=== PATIENT | female | born 1990 | race Caucasian/White ===

== ENCOUNTER → 2019-10-09 12:56 | Outpatient (BNVA) | payer MEDICAID, SELFPAY | PROVIDERS: Family Provider Nurse Practitioner Family; PCP Nurse Practitioner Family; Visit Provider Nurse Practitioner | DX: F33.0 Major depressive disorder, recurrent, mild (principal); F41.1 Generalized anxiety disorder; F40.10 Social phobia, unspecified | CPT/HCPCS: 99214 ==

== ENCOUNTER 2019-12-02 15:12 | Outpatient (CLI) | payer MEDICAID, SELFPAY ==
--- NOTE | 2019-12-02 15:15 | MR_ITS ---
WS: [id number] MRI LUMBAR SPINE NONCONTRAST HISTORY: Low back pain COMPARISON: 07/15/2018 TECHNIQUE: Sagittal and axial multisequence imaging is submitted. Normal lumbar alignment. Mild disc space narrowing and desiccation at L5-S1. No fracture or marrow ed julienne. Disc spaces and vertebral body heights are well-preserved. Conus terminates normally at L1-2 disc level. L1-L2: Normal. L2-L3: Normal. L3-L4: Small amount of fluid in the facet joints. No stenosis. L4-L5: Shallow central disc protrusion without stenosis or nerve root contact. Small amount of fluid in the facet joints. Similar to the prior study. L5-S1: Large central and RIGHT paracentral/subarticular disc protrusion. Disc is extruded inferior to the disc space into the subarticular recess. Disc extends caudad over a length of 1.5 cm and transve rsely x 1.2 and anterior posterior x 0.8 cm. Disc has increased in size. There is more contact on the central thecal sac and the RIGHT S1 nerve root. Mild narrowing of the RIGHT foramen. Small complex follicle or corpus luteum in the RIGHT ovary. Previously seen large LEFT ovarian cyst i s no longer identified. MR/MR lumbar spine wo con* [id number] IMPRESSION: 1. Increase in size of the large central and RIGHT subarticular extruded disc at L5-S1 with more contact on the RIGHT S1 nerve root and subarticular recess s tenosis. 2. No central stenosis. 3. Unchanged small central disc protrusion at L4-5.
== END 2019-12-02 15:13 | disposition home or self-care (01) ==
LOC: RADSHAW 15:14
PROVIDERS: Family Provider Nurse Practitioner Family; PCP Nurse Practitioner Family; Visit Provider Licensed Practical Nurse
DX: M51.17 Intervertebral disc disorders with radiculopathy, lumbosacral region (principal); M51.26 Other intervertebral disc displacement, lumbar region
CPT/HCPCS: 72148

== ENCOUNTER → 2019-12-04 07:53 | Outpatient (BNVA) | payer MEDICAID, SELFPAY | PROVIDERS: Family Provider Nurse Practitioner Family; PCP Nurse Practitioner Family; Visit Provider Nurse Practitioner | DX: F41.1 Generalized anxiety disorder (principal); F33.0 Major depressive disorder, recurrent, mild | CPT/HCPCS: 99214 ==

== ENCOUNTER → 2020-01-07 11:26 | Outpatient (BNVA) | payer MEDICAID, SELFPAY | PROVIDERS: Family Provider Nurse Practitioner Family; PCP Nurse Practitioner Family; Visit Provider Nurse Practitioner Family | DX: Z01.818 Encounter for other preprocedural examination (principal); R53.83 Other fatigue; Z79.899 Other long term (current) drug therapy | CPT/HCPCS: 80053; 81001; 83036; 84443; 85025 ==

== ENCOUNTER 2020-01-11 11:28 | Observation (INO) | payer MEDICAID, SELFPAY ==
[2020-01-08 11:32] VITALS: BMI 50.0
[2020-01-11] VITALS (22 sets, daily range): BP systolic 107–155; BP diastolic 67–101; PULSE 80–107; RESP 17–20; TEMP 36.5–36.8; O2SAT 92–99
[2020-01-11 06:08] LABS: OR HCG Qualitative Urine Negative (Negative)
[2020-01-11] MEDS: gabapentin 300 mg Capsule PO (06:23)
[2020-01-11] MEDS: sodium chloride 0.9% 1,000 ML 30 ML IV (06:23)
--- NOTE | 2020-01-11 06:27 | ANES.PREANE2 ---
Pre-Anesthetic Assessment Pre-Anesthetic Assessment: Height/Weight: Height 1.68 m Weight 140.614 kg Temp Pulse Resp BP Pulse Ox 98.0 F 86 18 149/86 97 01/11/20 06:15 01/11/20 06:15 01/11/20 06:15 01/11/20 06:15 01/11/20 06:15 Preop Diagnosis: Intervertebral disc disorder with radiculopathy, lumbosacral Proposed Procedure: Operation Date: 01/11/20 07:00 Proposed Procedures p Right L5-S1 Hemilaminotomy Foraminotomy Discectomy 1 76519/m51.17(Right) - Bryce Urbina MD Familial anesthetic complications: None Was Beta Mandeep taken within 24 hours: N/A Last intake: Intake 0420 sips with meds (water) Last Liquid Date 01/10/20 Last Liquid Time 17:30 Last Solid Date 01/10/20 Last Solid Time 17:30 Social: Social History: Tobacco and No alcohol Packs per day: 0.5 ppd Exam: Pre-Anes Outpt Exam: alert, oriented x 3, clear to auscultation bilaterally and regular rate & rhythm Airway: Cervical ROM: WNL MP: 4 Dentition: Full Additional comments: Patient's tongue discolored, denies drinking any coffee this morning Pulmonary: Pulmonary: Sleep apnea (noncompliant with cpap) CV/HEM: CV/HEM: None reported : : None reported Hepatic: Hepatic: None reported GI: GI: GERD Metabolic: Metabolic: Morbid obesity Musc/skel: Musc/skel: Lower Back Pain Neuropsych: Neuropsych: Anxiety and Depression Anesthetic Plan: ASA status: 2 Anesthesia: General Risk of > 500 ml blood loss (7ml/kg in children): No Meds/Allergies Current Medications: Current Medications Generic Name Dose Route Start Last Admin Trade Name Freq PRN Reason Stop Dose Admin Vancomycin HCl 1,5 00 mg/ 250 mls @ 166.667 mls/hr 01/11/20 05:50 01/11/20 06:24 Sodium Chloride IV 01/11/20 07:19 166.7 mls/hr ONCE ONE Administration Protocol Sodium Chloride 1,000 mls @ 30 ml s/hr 01/11/20 06:00 01/11/20 06:23 Sodium Chloride 0.9% IV 01/12/20 05:59 30 mls/hr .Q24H JESSICA Administration PFSH Anesthesia PFSH: Social History Smoking and tobacco status: current every day smoker cigarettes Alcohol intake: current Alcohol intake frequency: holidays/special occasions only Household members: significant other Marital status: Single Current occupational status: unemployed History of recent travel: No Female Reproductive History: Para: 3 Data Anesthesia Other Labs: Laboratory Results - last 48 hr 01/11/20 06:07 Urine HCG, Qual Negative Cardiac Studies: No Data to Display
--- NOTE | 2020-01-11 06:54 | W.PM.OPSUD ---
Surgery/Procedure H&P Update DATE OF PROCEDURE: January 11, 2020 DATE H&P PERFORMED: 01/07/20 H&P UPDATE INFORMATION: I have reviewed H&P completed within last 30 days and H&P is in [facility] EMR on date indicated PREOP DIAGNOSIS: Intervertebral disc disorder with radiculopathy, lumbosacral PRIMARY INDICATION FOR PROCEDURE: Pain PLANNED PROCEDURE: Operation Date: 01/11/20 07:00 Proposed Procedures Right L5-S1 Hemilaminotomy/Foraminotomy/Discectomy 12845/m51.17(Right) - Bryce Urbina MD
--- NOTE | 2020-01-11 07:10 | PM.OP2 ---
 Brief Operative Note: Date of procedure: 01/11/20 Pre-op diagnosis: Lumbosacral disc displacement with radiculopathy Post-op diagnosis: same Procedure Done: Right L5-S1 hemilaminotomy/discectomy/foraminotomy. Surgeon: Bryce Urbina Estimated blood loss (mL): 50 Complications: None Post-op Plan: PACU, then asencio. Condition: stable Disposition: PACU Coding Level of Care Code Acute Apprentice Embalmer for Maru Ovalle
--- NOTE | 2020-01-11 07:20 | XR_ITS ---
WS: [id number] XR lumbar spine 1V port [id number] REASON FOR EXAM: OR PICS FINDINGS: A localizer is seen at the region of the L5-S1 area along the posterior surface. XR/XR lumbar spine 1V port [id number] IMPRESSION: Preop localization L5-S1
[2020-01-11] MEDS: thrombin 5,000 unit SDV 5000 UNIT XX (07:47)
--- NOTE | 2020-01-11 07:58 | XR_ITS ---
WS: [id number] XR lumbar spine 1V port [id number] REASON FOR EXAM: SURGERY FINDINGS: Interoperative changes are noted in the lateral projections consistent with localization at the L5-S1 area. XR/XR lumbar spine 1V port [id number] IMPRESSION: Postop marker and postop changes L5-S1.
--- NOTE | 2020-01-11 08:29 | SUR.OPER ---
Family Notified Of Patient's Status Via Phone.
--- NOTE | 2020-01-11 09:33 | SUR.OPER ---
Family Notified Of Patient's Status Via Phone.
[2020-01-11] MEDS: fentaNYL 50 mcg/mL INJ 2mL IVP ×2 (11:31→11:36)
--- NOTE | 2020-01-11 12:00 | P.OP_ITS ---
Operative Report Date of procedure: January 11, 2020 Pre-op Diagnosis: Intervertebral disc disorder with radiculopathy, lumbosacral Pre-op Diagnosis: Morbid obesity Post-op diagnosis: same Procedure Done: Right L5-S1 hemilaminotomy/discectomy/foraminotomy. Specimens removed/disposition: L5-S1 disc Pathology: Disc fragments Surgeon: Bryce Urbina Anesthesia: General Estimated blood loss (mL): 50 IV fluids (mL): 1,500 Urine output (mL): 50 Complications: None Condition: stable Disposition: PACU Brief History: The patient is a 29-year-old morbidly obese female with symptomatic, radiographically confirmed right L5-S1 disc herniation, with associated neural impingement. Symptoms primarily involved the right lower extremity. Conservative treatment measures, including pain clinic interventions, failed to provide adequate lasting relief. After review of the diagnostic and treatment options with the risks/potential benefits/rationale for each, the patient requested to proceed with surgical intervention to address the intractable pain and associated activity limitations. Procedure: After routine preoperative evaluation and informed consent were obtained, the patient was taken to the Operating Room and placed under general endotracheal anesthesia. She was rotated onto the Operating Room table in the modified knee- chest position with the aid of the Johnston spine frame. The lumbosacral area was prepared with hair clippers. A proposed midline skin incision was marked with a sterile skin marker. Intraoperative radiography was used for localization purposes. The lumbosacral area was scrubbed with Betadine and prepped with DuraPrep. Sterile towels and drapes were applied, and an Ioban surgical barrier was placed. The proposed incision site was infiltrated with 1% Xylocaine with Epinephrine. A skin incision was made and carried down into the subcutaneous tissues. The lumbodorsal fascia was identified and divided in the midline. A right-sided subperiosteal dissection was carried down along the lamina of L5 and S1. Deep self-retaining retractors were placed. Intraoperative radiography was utilized to verify the surgical level. A limited laminotomy was fashioned at L5- S1 with Leksell and Kerrison rongeurs. Ligamentum flavum was resected at the base of the laminotomy site. The ligament was undercut across the midline and into the lateral recess. Limited resection of the medial aspect of the facet joint was performed to further the decompression. The thecal sac was retracted with the nerve root retractor. Some epidural adhesions were noted between herniated disc material and the dura. Retraction of the neural elements allowed disc herniation and associated marginal osteophytes to be addressed with various curettes and pituitary rongeurs. Disc material was also removed from within the spinal canal in a subligamentous location and from within the disc space near the annular defect. At the completion of the discectomy, there was no evidence of residual neural impingement within the central canal, lateral recess or neuroforamina at the operative site. The incision was copiously irrigated with sterile saline and antibiotic irrigation. Hemostasis was ensured with the bipolar electrocautery. A thin layer of Surgi-Dilip hemostatic matrix was placed over the exposed dura prior to wound closure. Closure consisted of 2-0 Vicryl Plus simple interrupted sutures in the lumbodorsal fascia, superficial fascia, and deep dermis as separate layers. Final skin closure was performed with 3-0 Vicryl Plus in a running subcuticular pattern. Steri-Strips were applied, and a sterile dressing was placed. The patient was then rotated onto the Recovery Room cart in the supine position. She was extubated without incident. The patient tolerated the procedure well. All sponge, needle, and instrument counts were correct at the completion of the procedure.
[2020-01-11] MEDS: lactated ringers 1,000 ML 90 ML IV (12:36)
[2020-01-11] MEDS: duloxetine 60 mg Capsule PO (12:39)
[2020-01-11] MEDS: HYDROcodone-acetaminophen 5-325 mg Tablet PO (15:20)
[2020-01-11] MEDS: docusate sodium 100 mg Capsule PO (17:20)
--- NOTE | 2020-01-11 18:00 | PM.DCS ---
Discharge Providers Date of Admission: 01/11/20 11:28 Date of Discharge: January 11, 2020 Attending Provider at Admission: Bryce Urbina MD Attending Provider at Discharge: Bryce Urbina MD Primary Care Provider: BREANNA Wynn Diagnoses at Discharge Discharge Diagnosis (1) Intervertebral disc disorder with radiculopathy of lumbosacral region: Status: Chronic (2) Morbid obesity: Status: Acute Reason for Visit Reason for Visit: Reason For Visit: Intervertebral disc disorder with radiculopathy of Brief History: The patient is a 29-year-old morbidly obese female with symptomatic, radiographically confirmed right L5-S1 disc herniation, with associated neural impingement. Symptoms primarily involved the right lower extremity. Conservative treatment measures, including pain clinic interventions, failed to provide adequate lasting relief. After review of the diagnostic and treatment options with the risks/potential benefits/rationale for each, the patient requested to proceed with surgical intervention to address the intractable pain and associated activity limitations. Hospital Course Hospital Course: The patient underwent right L5-S1 hemilaminotomy/discectomy/foraminotomy on 01/11/2020. She tolerated the procedure well, and reported improvement/relief of preoperative right lower extremity symptoms following surgery. She completed preoperative and postoperative intravenous antibiotics, and the physical therapy postoperative spine protocol. She was ambulatory, voiding, and tolerating regular diet prior to discharge home on the evening of the date of surgery. Physical Exam Const: COMMON NORMALS: no apparent distress GENERAL APPEARANCE: cooperative and comfortable NUTRITIONAL APPEARANCE: obese morbidly obese Neck/C-Spine: COMMON NORMALS: supple Resp: COMMON NORMALS: normal respiratory effort EFFORT & INSPECTION: Yes able to speak in complete sentences and No tachypneic Neuro: COMMON NORMALS: moves all extremities MOTOR EXAM: strength 5/5 throughout (Bilateral lower extremities) Psych: COMMON NORMALS: mental status grossly normal and speech normal ATTITUDE: Yes calm and Yes engaged ACTIVITY/MOTOR BEHAVIOR: Yes appropriate eye contact SPEECH: Yes normal speech INSIGHT: insight good JUDGEMENT: judgment good Skin: WOUNDS: Yes surgical site (Midline lumbar surgical incision without erythema or drainage. Surgical site dressing clean/dry/intact.) Urinary Catheter Management^: F: Cath Placed During This Visit: yes, but has since been removed by the nurse Urinary Catheter Date of Insertion: 01/11/20 Urinary Catheter Time of Insertion: 07:20 Date Urinary Catheter Removed: 01/11/20 Time Urinary Catheter Discontinued: 10:57 Discharge Data Data Completed and Pending: Completed Studies During Hospitalization Category Date Time Status XR lumbar spine 1 view portable [XR lumbar spine 1V Exams 01/11/20 07:58 Completed port [id number]] Routi ne XR lumbar spine 1 V port [id number] Routi ne Exams 01/11/20 07:20 Completed Pathology: Surgic al [PTH] Routine Pth 01/11/20 10:57 Completed Procedures Performed: Right L5-S1 hemilaminotomy/discectomy/foraminotomy. Intravenous antibiotics. Physical therapy. Vitals: Last Vital Signs Temp 98.0 F 01/11/20 17:27 Pulse 107 H 01/11/20 19:28 Resp 18 01/11/20 19:28 BP 138/90 01/11/20 17:27 Pulse Ox 95 01/11/20 19:28 Discharge Plan Discharge Patient Disposition: Home, Self-Care Condition: Stable Prescriptions: [place] 7.5-325 mg tablet 1 tab PO Q4H PRN (Reason: pain) Qty: 25 RF: 0 Continued diclofenac potassium 50 mg tablet 50 mg PO BID RF: 0 melatonin 1 mg tablet 5 mg PO .QHS RF: 0 tizanidine 2 mg capsule 4 mg PO TID PRN (Reason: Anxiety) RF: 0 trazodone 100 mg tablet 100 mg PO .QHS Qty: 30 RF: 1 duloxetine [Cymbalta] 30 mg capsule,delayed release(DR/EC) 30 mg PO DAILY Qty: 30 RF: 1 duloxetine [Cymbalta] 60 mg capsule,delayed release(DR/EC) 60 mg PO QDAY Qty: 30 RF: 1 omeprazole 40 mg capsule,delayed release(DR/EC) 40 mg PO DAILY 30 Days Qty: 30 RF: 1 Discontinued hydrocodone-acetaminophen 5-325 mg tablet 1 tab PO QID PRN (Reason: Pain) RF: 0 Discharge Orders: Discharge Order (Routine); Ordered 01/11/20 Ordered By: Bryce Urbina Referrals: Bryce Urbina MD [Physician] - 2 weeks Discharge Diet: Regular Discharge Activity: Limit activity as instructed and As per PT/OT instructions Patient Instructions: Foraminotomy (DC) Activity Restrictions/Additional Instructions: Activity - No driving until office followup visit - No lifting/pushing/pulling over 10 pounds - Avoid twisting or bending - Walking is encouraged - Home exercise per physical therapist - You may engage in sexual intercourse at any time as long as it is comfortable for you - Check with your doctor before returning to work. Notify your doctor if you develop: - temperature of 101.5 degrees F. or higher - redness or swelling of the incision - Foul drainage - increasing pain - increasing numbness or tingling in the arms or legs - New or increasing problems with vision, balance, memory, speaking, nausea or vomiting Hygiene: - Showering is okay - No tub baths or soaking Other: Remove outer bandage 3 days after surgery. If you have paper strips, leave in place until they fall off on their own. If you have stitches, keep your incision dry until the stitches are removed. Your doctor's office is available to answer any questions from 7 AM to 5:00 PM, Saturday through at [phone]. After hours, go to the emergency room at [facility] or call 911 for assistance. 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
--- NOTE | 2020-01-14 16:00 | PC.RESP ---
Smoking Cessation sent to patient after discharge with a schedule of classes.
== END 2020-01-11 20:19 | disposition home or self-care (01) ==
LOC: MEDSURG 11:28
PROVIDERS: Admitting Provider Specialist; Family Provider Nurse Practitioner Family; PCP Nurse Practitioner Family; Visit Provider Specialist
PROC: (CPT 22899; principal; 2020-01-11 07:00)
DX: M51.17 Intervertebral disc disorders with radiculopathy, lumbosacral region (principal); E66.01 Morbid (severe) obesity due to excess calories; Z68.43 Body mass index [BMI] 50.0-59.9, adult; F17.210 Nicotine dependence, cigarettes, uncomplicated; G47.30 Sleep apnea, unspecified; K21.9 Gastro-esophageal reflux disease without esophagitis; Z82.49 Family history of ischemic heart disease and other diseases of the circulatory system; Z83.3 Family history of diabetes mellitus
CPT/HCPCS: 63030; 63035; 12345; 51702; 72020; 81025; 84703; 88304; 96361; 96365; 96366; 97161; 97530; G0378; J0690; J1100; J2001; J2405; J2704; J3010; J3370; J3490; J7030; J7050

== ENCOUNTER → 2020-02-10 07:53 | Outpatient (BNVA) | payer MEDICAID, SELFPAY | PROVIDERS: Family Provider Nurse Practitioner Family; PCP Nurse Practitioner Family; Visit Provider Nurse Practitioner | DX: F41.1 Generalized anxiety disorder (principal); F33.0 Major depressive disorder, recurrent, mild | CPT/HCPCS: 99204; 99214 ==

== ENCOUNTER → 2020-02-25 07:42 | Outpatient (BNVA) | payer MEDICAID, SELFPAY | PROVIDERS: Family Provider Nurse Practitioner Family; PCP Nurse Practitioner Family; Visit Provider Nurse Practitioner | DX: F33.0 Major depressive disorder, recurrent, mild (principal); F41.1 Generalized anxiety disorder | CPT/HCPCS: 99213 ==

== ENCOUNTER 2020-08-22 08:36 | Outpatient (CLI) | payer MEDICAID, SELFPAY ==
--- NOTE | 2020-08-22 09:30 | MR_ITS ---
WS: [id number] MRI HEAD WITHOUT CONTRAST TECHNIQUE: Sagittal T1, T2 axial, T2 axial FLAIR, axial and coronal T1 images, axial susceptibility w eighted imaging, axial diffusion weighted images, and coronal T2 images were obtained. CLINICAL INFORMATION: H53.9 - Unspecified visual disturbance COMPARISON: None. FINDINGS: No evidence of restricted diffusion to suggest acute ischemia. Ventricular system and basal cisterns are patent. Normal flood-white differentiation. No suspicious intracranial signal abnormalities. Kathie l posterior fossa. Normal vascular flow voids at the skull base. No extra-axial fluid collections. Mi ld mucosal thickening in the paranasal sinuses. Polypoid mucosal thickening in the right maxillary si nus and sphenoid sinus. Incidental partially empty sella. No hemosiderin on susceptibly weighted images. Temporal lobes and hippocampal formations are normal in appearance. No evidence of mesial temporal sclerosis. Incidental left middle cranial fossa arachnoid cyst measuring 2.1 x 1.7 x 1.2 cm MR/MR head wo con* [id number] IMPRESSION: 1. No evidence of restricted diffusion to suggest acute ischemia. 2. No suspicious intracranial signal abnormalities. Normal flood-white differen tiation. 3. Incidental arachnoid cyst left middle cranial fossa measuring 2.1 x 1.7 x 1 .2 CM. 4. Polypoid mucosal thickening right maxillary sinus and sphenoid sinus. 5. No hemosiderin on susceptibly weighted images. 6. No hydrocephalus.
== END 2020-08-22 08:37 | disposition home or self-care (01) ==
LOC: RADSHAW 08:38
PROVIDERS: Family Provider Nurse Practitioner Family; PCP Nurse Practitioner Family; Visit Provider Nurse Practitioner Family
DX: G93.0 Cerebral cysts (principal); H53.9 Unspecified visual disturbance; R51.9 Headache, unspecified
CPT/HCPCS: 70551

== ENCOUNTER → 2020-08-24 12:14 | Outpatient (BNVA) | payer MEDICAID, SELFPAY | PROVIDERS: Family Provider Nurse Practitioner Family; PCP Nurse Practitioner Family; Visit Provider Nurse Practitioner Family | DX: J32.9 Chronic sinusitis, unspecified (principal); R53.83 Other fatigue; Z13.6 Encounter for screening for cardiovascular disorders; E55.9 Vitamin D deficiency, unspecified; Z79.899 Other long term (current) drug therapy | CPT/HCPCS: 80053; 80061; 81003; 82306; 83036; 84443; 85025 ==

== ENCOUNTER → 2020-09-19 11:07 | Outpatient (BNVA) | payer BC, MEDICAID, SELFPAY | PROVIDERS: Family Provider Nurse Practitioner Family; PCP Nurse Practitioner Family; Visit Provider Psychiatry & Neurology Psychiatry | DX: F33.0 Major depressive disorder, recurrent, mild (principal); Z72.820 Sleep deprivation; F41.1 Generalized anxiety disorder | CPT/HCPCS: 99214 ==

== ENCOUNTER → 2020-10-18 10:07 | Outpatient (BNVA) | payer BC, SELFPAY | PROVIDERS: PCP Nurse Practitioner Family; Visit Provider Psychiatry & Neurology Psychiatry | DX: F33.0 Major depressive disorder, recurrent, mild (principal); F41.1 Generalized anxiety disorder | CPT/HCPCS: 99214 ==

== ENCOUNTER → 2020-11-23 14:28 | Outpatient (BNVA) | payer BC, MEDICAID, SELFPAY | PROVIDERS: PCP Nurse Practitioner Family; Visit Provider Family Medicine | DX: Z13.6 Encounter for screening for cardiovascular disorders (principal); E78.2 Mixed hyperlipidemia; Z79.899 Other long term (current) drug therapy | CPT/HCPCS: 80053; 80061; 81003; 82306; 83036; 85007; 85027 ==

== ENCOUNTER → 2020-11-24 10:11 | Outpatient (BNVA) | payer BC, MEDICAID, SELFPAY | PROVIDERS: PCP Nurse Practitioner Family; Visit Provider Specialist | DX: G43.711 Chronic migraine without aura, intractable, with status migrainosus (principal); G93.0 Cerebral cysts; F17.210 Nicotine dependence, cigarettes, uncomplicated | CPT/HCPCS: 99204 ==

== ENCOUNTER 2020-12-14 10:49 | Outpatient (CLI) | payer BC, MEDICAID, SELFPAY ==
--- NOTE | 2020-12-14 11:07 | CT_ITS ---
WS: [id number] CT PARANASAL SINUSES HISTORY: SINUSITIS TECHNIQUE: Contiguous 2.5 mm axial images obtained through the sinuses. Images are reconstructed in s agittal and coronal planes. All CT scans at [facility] use at least one of these dose opt imization techniques: automated exposure control; mA and/or kV adjustment per patient size (includes targeted exams where dose is matched to clinical indication); or iterative reconstruction. DLP: 346.37 mGycm COMPARISON: None available. Frontal sinuses: Normal. Sphenoid sinus: No polyps. Small amount of soft tissue at the RIGHT sphenoethmoidal recess. Ethmoid sinuses: Normal. Maxillary sinus: Very small amount mucoperiosteal thickening in the floor of the RIGHT maxillary sinu s. No polypoid lesions. No septations or air-fluid levels. Ostiomeatal unit: No obstruction. The LEFT anterior ethmoid air cells and the LEFT anterior ethmoid b rosa are more prominent and asymmetric as compared to the RIGHT. Very minimal LEFT deviation of the distal nasal septum. No significant spurring. Soft tissues around the orbits and globes are negative. CT/CT sinus wo con* [id number] IMPRESSION: 1. Very tiny amount of mucosal thickening in the floor of the RIGHT maxillary sinus and also at the RIGHT sphenoethmoidal recess. 2. No air-fluid levels. 3. Asymmetric appearance of the LEFT anterior ethmoid air cells and LEFT anter ior ethmoid bulla, more prominent on the LEFT than the RIGHT. Normal variant.
== END 2020-12-14 10:50 | disposition home or self-care (01) ==
LOC: RADWPI 10:57
PROVIDERS: PCP Nurse Practitioner Family; Visit Provider Otolaryngology
DX: J32.9 Chronic sinusitis, unspecified (principal)
CPT/HCPCS: 70486

== ENCOUNTER → 2021-01-16 08:10 | Outpatient (BNVA) | payer BC, MEDICAID, SELFPAY | PROVIDERS: PCP Nurse Practitioner Family; Visit Provider Registered Nurse | DX: E55.9 Vitamin D deficiency, unspecified (principal); Z13.6 Encounter for screening for cardiovascular disorders; E78.2 Mixed hyperlipidemia | CPT/HCPCS: 80053; 80061; 82306 ==

== ENCOUNTER → 2021-01-17 09:36 | Outpatient (BNVA) | payer BC, MEDICAID, SELFPAY | PROVIDERS: PCP Registered Nurse; Referring Provider Orthopaedic Surgery; Visit Provider Anesthesiology Pain Medicine | DX: G89.29 Other chronic pain (principal); M47.816 Spondylosis without myelopathy or radiculopathy, lumbar region; M51.16 Intervertebral disc disorders with radiculopathy, lumbar region; M79.604 Pain in right leg; F17.210 Nicotine dependence, cigarettes, uncomplicated | CPT/HCPCS: 99205 ==

== ENCOUNTER → 2021-01-23 10:54 | Outpatient (BNVA) | payer BC, MEDICAID, SELFPAY | PROVIDERS: PCP Nurse Practitioner Family; Visit Provider Psychiatry & Neurology Psychiatry | DX: F33.0 Major depressive disorder, recurrent, mild (principal); F41.1 Generalized anxiety disorder | CPT/HCPCS: 99214 ==

== ENCOUNTER → 2021-01-25 13:20 | Outpatient (BNVA) | payer BC, MEDICAID, SELFPAY | PROVIDERS: PCP Nurse Practitioner Family; Visit Provider Anesthesiology Pain Medicine | DX: G89.29 Other chronic pain (principal); M51.16 Intervertebral disc disorders with radiculopathy, lumbar region; F17.210 Nicotine dependence, cigarettes, uncomplicated | CPT/HCPCS: 64483; 64484; J1100; J3490 ==

== ENCOUNTER → 2021-02-13 09:59 | Outpatient (BNVA) | payer BC, MEDICAID, SELFPAY | PROVIDERS: PCP Nurse Practitioner Family; Visit Provider Anesthesiology Pain Medicine | DX: G89.29 Other chronic pain (principal); M47.816 Spondylosis without myelopathy or radiculopathy, lumbar region; M51.16 Intervertebral disc disorders with radiculopathy, lumbar region; M79.604 Pain in right leg; F17.210 Nicotine dependence, cigarettes, uncomplicated | CPT/HCPCS: 99213 ==

== ENCOUNTER → 2021-02-27 12:24 | Outpatient (BNVA) | payer BC, MEDICAID, SELFPAY | PROVIDERS: PCP Nurse Practitioner Family; Visit Provider Anesthesiology Pain Medicine | DX: G89.29 Other chronic pain (principal); M54.16 Radiculopathy, lumbar region; F17.210 Nicotine dependence, cigarettes, uncomplicated | CPT/HCPCS: 64483; 64484; J1100; J3490 ==

== ENCOUNTER → 2021-05-10 09:08 | Outpatient (BNVA) | payer BC, MEDICAID, SELFPAY | PROVIDERS: PCP Nurse Practitioner Family; Visit Provider Nurse Practitioner Family | DX: Z20.822 Contact with and (suspected) exposure to COVID-19 (principal); R05 Cough | CPT/HCPCS: 87635 ==

== ENCOUNTER → 2021-08-28 13:42 | Outpatient (BNVA) | payer BC, MEDICAID, SELFPAY | PROVIDERS: PCP Nurse Practitioner Family; Visit Provider Nurse Practitioner Family | DX: Z20.828 Contact with and (suspected) exposure to other viral communicable diseases (principal) | CPT/HCPCS: 87635 ==

== ENCOUNTER → 2022-07-26 11:02 | Outpatient (BNVA) | payer BC, MEDICAID, SELFPAY | PROVIDERS: PCP Nurse Practitioner Family; Visit Provider Nurse Practitioner Family | DX: R68.89 Other general symptoms and signs (principal); J32.9 Chronic sinusitis, unspecified | CPT/HCPCS: 87400 ==

== ENCOUNTER → 2023-06-25 08:37 | Outpatient (BNVA) | payer BC, MEDICAID, SELFPAY | PROVIDERS: PCP Nurse Practitioner Family; Visit Provider Nurse Practitioner Family | DX: R51.9 Headache, unspecified (principal); R05.9 Cough, unspecified; E78.5 Hyperlipidemia, unspecified; G93.0 Cerebral cysts | CPT/HCPCS: 80053; 80061; 87486; 87581; 87633 ==

== ENCOUNTER → 2023-08-15 16:47 | Outpatient (BNVA) | payer BC, MEDICAID, SELFPAY | PROVIDERS: PCP Nurse Practitioner Family; Visit Provider Nurse Practitioner Family | DX: R55 Syncope and collapse (principal); E78.5 Hyperlipidemia, unspecified | CPT/HCPCS: 80053; 83735; 84439; 84443; 84481 ==

== ENCOUNTER 2023-10-23 12:48 | Outpatient (CLI) | payer MEDICAID, SELFPAY ==
--- NOTE | 2023-10-23 13:00 | MR_ITS ---
WS: [id number] MRI RIGHT SHOULDER NONCONTRAST TECHNIQUE: Sagittal T2, coronal T1, T2 and proton density imaging. Axial gradient PDE imaging. CLINICAL INFORMATION: 3 weeks shoulder pain, numbness and tingling radiating hand COMPARISON: None. FINDINGS: Moderate degenerative arthritis AC joint with small amount of subacromial and subdeltoid fluid. Sligh t impingement distal supraspinatus. Mild chronic thinning of the distal supraspinatus. Normal infrasp inatus. Normal teres minor. Normal subscapularis. Biceps tendon appears intact within the bicipital g roove. Glenoid labrum appears grossly normal. Intra-articular biceps tendon appears intact. Normal osmar ne marrow signal in the humerus and glenoid. IMPRESSION: 1. Moderate degenerative arthritis AC joint advanced for patient this age with slight impingement on the distal supraspinatus. Small amount of subacromial subdeltoid fluid. Fluid in the AC joint. 2. Tendinopathy distal supraspinatus with mild chronic thinning. 3. Rotator cuff is otherwise normal. 4. Biceps tendon appears intact within the bicipital groove. 5. No other acute findings.
== END 2023-10-23 12:49 | disposition home or self-care (01) ==
LOC: RAD 12:48
PROVIDERS: PCP Nurse Practitioner Family; Visit Provider Nurse Practitioner Family
DX: M19.011 Primary osteoarthritis, right shoulder (principal); R20.2 Paresthesia of skin; R20.0 Anesthesia of skin; M67.813 Other specified disorders of tendon, right shoulder
CPT/HCPCS: 73221

== ENCOUNTER → 2023-11-12 15:04 | Outpatient (BNVA) | payer BC, MEDICAID, SELFPAY | PROVIDERS: PCP Nurse Practitioner Family; Visit Provider Internal Medicine | DX: R07.9 Chest pain, unspecified (principal) | CPT/HCPCS: 93005 ==

== ENCOUNTER → 2023-11-15 10:26 | Outpatient (BNVA) | payer BC, MEDICAID, SELFPAY | PROVIDERS: PCP Nurse Practitioner Family; Referring Provider Nurse Practitioner Family; Visit Provider Physician Assistant | DX: M25.511 Pain in right shoulder (principal); M75.41 Impingement syndrome of right shoulder | CPT/HCPCS: 73030 ==

== ENCOUNTER 2023-11-18 12:04 | Outpatient (CLI) | payer BC, MEDICAID, SELFPAY ==
--- NOTE | 2023-11-18 12:15 | USCV_ITS ---
Lucille Nance Age: 32 Gender: F : 1990 Exam Date: 11/18/2023 12:21 Ordering Phys: Addison Okeefe M.D ([email or web address]) Technologist: TROY [place] [facility] [place]: cp. sob BP: 143 / 81 HR: 0 Rhythm: Sinus Technical Quality: Adequate MEASUREMENTS (Male / Female) Normal Values 2D ECHO LV Diastolic Diameter PLAX 4.8 cm 4.2 - 5.9 / 3.9 - 5.3 cm IVS Diastolic Thickness 0.9 cm 0.6 - 1.0 / 0.6 - 0.9 cm IVS Systolic Thickness 1.4 cm LVPW Diastolic Thickness 0.8 cm 0.6 - 1.0 / 0.6 - 0.9 cm LVPW Systolic Thickness 1.9 cm LVOT Diameter 2.0 cm LV Ejection Fraction 2D Teich 57.2 % LV Ejection Fraction MOD 2C 29.6 % LV Ejection Fraction 2C AL 24.5 % LA Diameter 3.4 cm RA Systolic Volume 4C AL 45.5 ml RA Systolic Volume 4C MOD 46.1 ml Aorta at Sinotubular Diameter 2.6 cm IVC Diameter 1.5 cm M-MODE LA Ao Ratio MM 1.4 AV Cusp Separation MM 1.5 cm DOPPLER AV Peak Velocity 114.0 cm/s LVOT Peak Velocity 100.0 cm/s AV Area Cont Eq vti 2.8 cm squared AV Area Cont Eq pk 2.9 cm squared MV Peak Velocity 83.0 cm/s MV Area PHT 2.8 cm squared Mitral E to A Ratio 0.8 TV Peak Velocity 189.3 cm/s TR Peak Velocity 203.0 cm/s TR Peak Gradient 16.5 mmHg TR Mean Velocity 171.0 cm/s TR Mean Gradient 12.3 mmHg TR Velocity Time Integral 59.2 cm TV Peak E Velocity 78.0 cm/s Right Atrial Pressure 3.0 mmHg Pulmonary Artery Systolic Pressu 19.5 mmHg PV Peak Velocity 98.0 cm/s RV Ejection Time 0.3 s FINDINGS Left Ventricle Left ventricle is normal size. LV systolic function is normal with EF of 50 to 55%. No regional wall motion abnormalities are seen. Right Ventricle Normal in size and function Right Atrium Normal in size Left Atrium Normal in size Mitral Valve Structurally normal mitral valve. Mild mitral regurgitation. Aortic Valve Structurally normal aortic valve. No significant stenosis or regurgitation. Tricuspid Valve Mild tricuspid regurgitation. Pulmonary artery systolic pressure is normal. Pulmonic Valve Not well-visualized. Pericardium Normal Aorta Normal in size IVC Appears to be normal CONCLUSIONS LV systolic function is normal with EF of 50-55% Mild mitral regurgitation Mild tricuspid regurgitation No comparison studies are available. Addison Okeefe MD (Electronically Signed) Final Date: 01 December 2023 13:02 S
== END 2023-11-18 12:05 | disposition home or self-care (01) ==
LOC: RAD 12:05
PROVIDERS: PCP Nurse Practitioner Family; Visit Provider Internal Medicine
DX: I08.1 Rheumatic disorders of both mitral and tricuspid valves (principal); R07.9 Chest pain, unspecified
CPT/HCPCS: 93306

== ENCOUNTER → 2024-02-14 16:31 | Outpatient (BNVA) | payer MEDICAID, SELFPAY | PROVIDERS: PCP Nurse Practitioner Family; Visit Provider Nurse Practitioner Family | DX: N39.0 Urinary tract infection, site not specified (principal) | CPT/HCPCS: 81000 ==

== ENCOUNTER → 2024-03-10 14:24 | Outpatient (BNVA) | payer OTHER, SELFPAY | PROVIDERS: PCP Nurse Practitioner Family; Visit Provider Nurse Practitioner Family | DX: E78.5 Hyperlipidemia, unspecified (principal) | CPT/HCPCS: 80053; 80061; 82306; 82607; 83735; 85025 ==

== ENCOUNTER 2024-06-29 10:12 | Outpatient (CLI) | payer OTHER, SELFPAY ==
--- NOTE | 2024-06-29 10:21 | CTR_ITS ---
PROCEDURE INFORMATION: Exam: CT Temporal Bones Without Contrast. Exam date and time: 06/29/2024 10:26 AM Age: 33 years old Clinical indication: Pain; Prior surgery; Surgery date: 6+ months; Surgery type: Eardrum rupture; Patient HX: RT ear infection x 3 months, steroids aren't helping; Additional info: Disorders of tympanic membrane right ear TECHNIQUE: Imaging protocol: Computed tomography of the temporal bones without contrast. Radiation optimization: All CT scans at this facility use at least one of these dose optimization techniques: automated exposure control; mA and/or kV adjustment per patient size (includes targeted exams where dose is matched to clinical indication); or iterative reconstruction. COMPARISON: CT sinus wo con* [id number] 12/14/2020 11:14 AM RADIATION DOSE METRICS: Total DLP (mGy-cm): 382.98 FINDINGS: Right inner ear: Normal. Right ossicles and middle ear: Normal. The middle ear ossicles are intact. Right external auditory canal: Asymmetric soft tissue thickening at the deep external auditory canal spanning approximately 1 cm extending to the tympanic membrane, which appears mildly retracted, coronal image 61 of series 8. Right facial nerve canal: Normal. Right jugular foramen: No jugular dehiscence. Right carotid canal: No aberrant carotid canal. Right mastoid air cells: Normal. No mastoid effusions. Left inner ear: Normal. Left ossicles and middle ear: Normal. The middle ear ossicles are intact. Left external auditory canal: Normal. Left facial nerve canal: Normal. Left jugular foramen: No jugular dehiscence. Left carotid canal: No aberrant carotid canal. Left mastoid air cells: Normal. No mastoid effusions. Paranasal sinuses: Small right maxillary sinus mucous retention cysts. Minimal right sphenoid sinus mucosal thickening. Otherwise clear without fluid levels. Soft tissues: Unremarkable. CT/CT temporal bone wo con* [id number] IMPRESSION: Asymmetric soft tissue thickening at the deep right external auditory canal extending to the tympanic membrane, which may be mildly retracted.
== END 2024-06-29 10:13 | disposition home or self-care (01) ==
LOC: RAD 10:17
PROVIDERS: PCP Nurse Practitioner Family; Visit Provider Specialist
DX: H73.891 Other specified disorders of tympanic membrane, right ear (principal)
CPT/HCPCS: 70480

== ENCOUNTER → 2024-08-24 15:05 | Outpatient (BNVA) | payer OTHER, SELFPAY | PROVIDERS: PCP Nurse Practitioner Family; Visit Provider Nurse Practitioner Family | DX: R30.0 Dysuria (principal) | CPT/HCPCS: 80053; 81000 ==

== ENCOUNTER → 2024-12-02 14:15 | Outpatient (BNVA) | payer OTHER, SELFPAY | PROVIDERS: PCP Nurse Practitioner Family; Visit Provider Nurse Practitioner Family | DX: E78.2 Mixed hyperlipidemia (principal) | CPT/HCPCS: 80053; 80061; 82607; 83735; 84443; 85025 ==